=== PATIENT | male | born 1995 | race Caucasian/White ===

== ENCOUNTER 2019-01-16 08:08 | Outpatient (CLI) | payer OTHER ==
--- NOTE | 2019-01-16 17:45 | MRI Report ---
Reason: PAIN IN UNSPECIFIED ELBOW Procedure Date: 01/16/2019 Accession Number: [id number] / [id number] Procedure: MRI - Elbow RT W/O CPT Code: FULL RESULT: EXAM: RIGHT ELBOW MRI WITHOUT CONTRAST. EXAM DATE: 01/16/2019 09:01 AM. CLINICAL HISTORY: Pain in unspecified elbow. COMPARISON: None. TECHNIQUE: Multiplanar, multisequence T1-weighted and fluid-sensitive sequences of the elbow without contrast. Other: None. FINDINGS: Bones: Focal area of marrow edema without fracture line seen in the anterior lateral aspect of the capitellum. 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 Marginal arthrosis at the lateral aspect of the capitellum also noted. 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 Ligaments: The ulnar collateral, lateral ulnar collateral, radial collateral, and annular ligaments are intact. Tendons: Common extensor tendon shows some mild thickening and increased T2 signal. Common flexor tendon is normal. The distal biceps, brachialis, and triceps tendons are unremarkable. Musculature: No edema or fatty atrophy. Other: The cubital tunnel and ulnar nerve are unremarkable. No effusion. The subcutaneous tissues are unremarkable. IMPRESSION: 1. There is a focal area of marrow edema without fracture line in the anterolateral aspect of the capitellum. 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 Marginal osteophytosis also seen at the capitellum. 2. There is mild tendinopathy at the common extensor tendon. Flexor tendon is normal. Other tendon attachments also appear unremarkable. RADIA
== END 2019-01-16 08:09 | disposition home or self-care (01) ==
LOC: DI 08:08
PROVIDERS: ATTEND Family Medicine
DX: M94.221 Chondromalacia, right elbow (principal); M67.921 Unspecified disorder of synovium and tendon, right upper arm

== ENCOUNTER 2019-04-07 15:07 | Emergency (ER) | payer OTHER ==
--- NOTE | 2019-04-07 16:32 | ED Physician Documentation ---
History of Present Illness - Stated complaint Stated Complaint: Not Feeling Well - Chief complaint Chief Complaint: General - History obtained from History obtained from: Patient - History of Present Illness Timing: Prior to arrival - Additonal information Additional information: Patient is a previously healthy 24-year-old male presenting the ED with general unwell feeling. 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 Patient denies other specific complaints of pain including headache, chest pain, abdominal pain. Patient also denies productive cough, fever, vomiting, urinary changes, or stool changes. Patient is tolerated oral intake well and has not had any episodes of syncope or near syncope. No other improving or worsening factors noted. Review of Systems Constitutional: denies: Fever Eyes: denies: Loss of vision Cardiac: denies: Chest pain / pressure Respiratory: reports: Dyspnea. denies: Cough GI: denies: Abdominal Pain, Nausea, Vomiting, Diarrhea : denies: Dysuria Neurologic: reports: Numbness PD PAST MEDICAL HISTORY - Past Medical History Past Medical History: No - Past Surgical History Past Surgical History: No - Present Medications Home Medications: Ambulatory Orders Medication Instructions Recorded Confirmed No Known Home Medications 04/07/19 04/07/19 - Allergies Allergies/Adverse Reactions: Allergies Allergy/AdvReac Type Severity Reaction Status Date / Time No Known Drug Allergies Allergy Verified 04/07/19 15:15 - Social History Does the pt smoke?: Yes Smoking Status: Current every day smoker PD ED PE NORMAL - Vitals Vital signs reviewed: Yes - General General: Alert and oriented X 3, No acute distress, Well developed/nourished - HEENT HEENT: Atraumatic, PERRL, EOMI, Moist mucous membranes, Pharynx benign, Dentition benign - Neck Neck: Supple, no meningeal sign - Cardiac Cardiac: RRR, No murmur - Respiratory Respiratory: No respiratory distress, Clear bilaterally - Abdomen Abdomen: Soft, Non tender, Non distended - Derm Derm: Normal color, Warm and dry, No rash - Extremities Extremities: No deformity, No tenderness to palpate - Neuro Neuro: Alert and oriented X 3, No motor deficit, No sensory deficit - Psych Psych: Normal mood, Normal affect Results - Vitals Vitals: Vital Signs - 24 hr 04/07/19 15:13 Temperature 36.6 C Heart Rate 77 Respiratory 22 Rate Blood Pressure 117/76 O2 Saturation 100 Oxygen O2 Source Room air PD MEDICAL DECISION MAKING - ED course Complexity details: considered differential, d/w patient ED course: Patient presenting with general unwell feeling and description of diffuse paresthesias that haveLargely resolved. Patient is denying any specific complaints would raise high suspicion for intracranial injury including stroke or mass, PE or pneumonia, cardiac pathology including ME or ACS, intra-abdominal pathology, UTI or other infection. Physical exam is extremely benign. Feel that patient is likely experiencing lack of sleep, dehydration, and other general unwell feelings, but does not require imaging or invasive testing at this time. Patient agrees. Discussed hydration and diet recommendations, rest, and follow-up as well as return precautions. Patient voiced understanding and is comfortable with discharge plan. Departure - Departure Disposition: 01 Home, Self Care Clinical Impression: Paresthesias Condition: Good Follow-Up: Sophia Day MD [Primary Care Provider] - Within 3 Days Comments: Recommend hydration with Powerade/Gatorade and healthy, bland diet advancing as tolerated. Recommend rest and follow-up with primary care physician in next 2 to 3 days. Return to ED sooner if experience worsening symptoms or have other concerns.
[2019-04-07 17:03] VITALS: BP 111/75
== END 2019-04-07 17:02 | disposition home or self-care (01) ==
LOC: ED 15:07
DX: R20.2 Paresthesia of skin (principal); F17.200 Nicotine dependence, unspecified, uncomplicated
CPT/HCPCS: 99282; 99284

== ENCOUNTER 2021-05-10 07:38 | Outpatient (CLI) | payer OTHER ==
--- NOTE | 2021-05-10 17:04 | MRI Report ---
PROCEDURE: INDICATIONS: LEFT KNEE INSTABILITY TECHNIQUE: Noncontrast sagittal PD fast spin echo and T2 fast spin echo with fat saturation, sagittal 3-D gradie nt sequence with fat saturation; coronal T1 spin echo and PD fast spin echo with fat saturation, and axial PD fast spin echo with fat saturation through the knee. COMPARISON: None. FINDINGS: Menisci: Medial meniscus: Intact. Lateral meniscus: Intact. Cruciate ligaments: Anterior cruciate ligament: Intact. Posterior cruciate ligament: Intact. Medial structures: The medial collateral ligament appears intact. The semimembranosus tendon appears intact. Visualized portions of the pes anserinus tendons appear normal. No abnormal bursal fluid. Lateral structures: Lateral collateral ligament appears grossly intact. Biceps femoris tendon appears intact. Iliotibial band within normal limits. Popliteus tendon within normal limits. Anterior structures: Patellar tendon appears intact Quadriceps tendon appears intact. Medial and lateral patellofemoral ligaments appear grossly intact. Patellar alignment is normal. Hoffa's fat pad unremarkable. Bones and cartilage: Bones: Focal marrow edema involving the medial aspect of the patella. Medial compartment: Cartilage intact. Lateral compartment: Cartilage intact. Patellofemoral compartment: Fissuring of the cartilage overlying the lateral patellar facet. Femoral trochlear cartilage appears intact. Joint space: No joint effusion. No Steve?s cyst. IMPRESSION: Prominent focal marrow edema involving the medial aspect of the patella, suspicious for marrow contus ion. Please correlate to point tenderness. Elsewhere, no internal derangement Reviewed by: Francisco Martinez MD on 05/10/2021 5:03 PM PDT Approved by: Francisco Martinez MD on 05/10/2021 5:03 PM PDT Station ID: [id number]
== END 2021-05-10 07:39 | disposition home or self-care (01) ==
LOC: DI 07:38
PROVIDERS: ATTEND Student in an Organized Health Care Education/Training Program
DX: R60.0 Localized edema (principal); M25.362 Other instability, left knee

== ENCOUNTER 2021-10-06 11:29 | Emergency (ER) | payer OTHER ==
[2021-10-06 11:44] VITALS: BP 123/74
[2021-10-06] MEDS ORDERED: ONDANSETRON ODT 4 MG TABLET TL STA (12:00)
--- NOTE | 2021-10-06 12:04 | ED Physician Documentation ---
History of Present Illness - Stated complaint Stated Complaint: VOMITING, COUGHING UP BLOOD - Chief complaint Chief Complaint: General - Additonal information Additional information: 26-year-old male presents emergency department for evaluation of coffee-ground emesis as well as mild hemoptysis. He reports that he woke up this morning felt okay but when his work began to get nauseated. He went to the bathroom and vomited a fair amount of coffee ground vomitus. Shortly thereafter he coughed and noted a little bit of blood in his sputum. He denies any recent fevers. He has no abdominal pain but does endorse some nausea. He has no melena or hematochezia. No history of similar in the past. Very rare alcohol use. He typically uses Aleve or ibuprofen once to twice a week to manage headaches. He does vape. No history of similar in the past. Takes no routinely prescribed medications. Review of Systems Constitutional: reports: Reviewed and negative Ears: reports: Reviewed and negative Nose: reports: Reviewed and negative Throat: reports: Sore throat Cardiac: reports: Reviewed and negative Respiratory: reports: Cough, Hemoptysis, Reviewed and negative GI: reports: Nausea, Vomiting. denies: Abdominal Pain, Constipation, Diarrhea : reports: Reviewed and negative Skin: reports: Reviewed and negative Musculoskeletal: reports: Reviewed and negative Neurologic: reports: Reviewed and negative PD PAST MEDICAL HISTORY - Past Surgical History Past Surgical History: No - Present Medications Home Medications: Ambulatory Orders Medication Instructions Recorded Confirmed Omeprazole 40 mg PO DAILY #30 cap 10/06/21 Ondansetron Odt [Zofran] 4 mg TL Q6H PRN #10 tablet 10/06/21 - Allergies Allergies/Adverse Reactions: Allergies Allergy/AdvReac Type Severity Reaction Status Date / Time No Known Drug Allergies Allergy Verified 10/06/21 11:44 - Social History Does the pt smoke?: Yes Smoking Status: Current every day smoker PD ED PE NORMAL - General General: Alert and oriented X 3, No acute distress, Well developed/nourished - HEENT HEENT: Atraumatic, Ears normal, Moist mucous membranes. No: Pharynx benign (Small number of fluid-filled vesicle seen in the posterior oropharynx. Uvula is midline. No soft palate asymmetry or swelling. Normal phonation. Normal swallow.) - Neck Neck: Supple, no meningeal sign, No adenopathy, Thyroid normal - Cardiac Cardiac: RRR, No murmur - Respiratory Respiratory: No respiratory distress, Clear bilaterally - Abdomen Abdomen: Normal bowel sounds, Soft, Non tender - Male Male : Deferred, Pt declined - Rectal Rectal: Deferred - Back Back: No CVA TTP, No spinal TTP - Derm Derm: Normal color, Warm and dry, No rash - Extremities Extremities: No deformity, No tenderness to palpate, Normal ROM s pain - Neuro Neuro: Alert and oriented X 3, sole layer 2-12 intact Eye Opening: Spontaneous Motor: Obeys Commands Verbal: Oriented GCS Score: 15 Results - Vitals Vitals: Vital Signs - 24 hr 10/06/21 11:41 Temperature 36.8 C Heart Rate 78 Respiratory 15 Rate Blood Pressure 123/74 O2 Saturation 99 Oxygen O2 Source Room air - Labs Labs: Laboratory Tests 10/06/21 10/06/21 10/06/21 12:07 12:07 12:07 WBC 8.0 RBC 5.36 Hgb 16.9 Hct 48.6 MCV 90.7 MCH 31.5 H MCHC 34.8 RDW 12.4 Plt Count 233 MPV 10.2 Neut # (Auto) 5.6 Lymph # (Auto) 1.8 Kane # (Auto) 0.6 Eos # (Auto) 0.0 Baso # (Auto) 0.0 Absolute Nucleated RBC 0.00 Nucleated RBC % 0.0 PT 12.7 H INR 1.1 Sodium 139 Potassium 3.8 Chloride 100 L Carbon Dioxide 28 Anion Gap 11.0 BUN 12 Creatinine 0.9 Estimated GFR (MDRD) 103 Glucose 106 H Calcium 9.4 Total Bilirubin 1.4 H AST 34 ALT 39 Alkaline Phosphatase 71 Total Protein 8.1 Albumin 4.9 Globulin 3.2 Albumin/Globulin Ratio 1.5 Lipase 29 Departure - Departure Disposition: 01 Home, Self Care Clinical Impression: Hematemesis of unknown cause Nausea and vomiting Qualifiers: Vomiting type: unspecified Qualified Code(s): R11.2 - Nausea with vomiting, unspecified Condition: Stable Record reviewed to determine appropriate education?: Yes Instructions: ED PUD Vs Gastritis Prescriptions: Omeprazole 40 mg PO DAILY #30 cap Ondansetron Odt [Zofran] 4 mg TL Q6H PRN #10 tablet PRN Reason: Nausea / Vomiting Comments: Rui you were seen in the emergency department today for reportedly vomiting coffee-ground emesis. Your screening labs did not show any worrisome findings. However vomiting of coffee-ground or suspicion of bloody vomit can be a sign of gastritis, peptic ulcer disease or NSAID medication overuse. I have prescribed a small amount of Zofran to the [facility] in [place]. I recommend for the next 24 hours you sip clear liquids and use the Zofran to help with nausea. I recommend that you avoid caffeine, NSAID use, any tobacco or nicotine products and alcohol. If you find that this is not improving your symptoms you should see [facility] as you should then be referred for an endoscopy to evaluate for stomach ulcer formation. In the short-term I would like you to take the omeprazole once daily. Reasons to return to the emergency department would be fevers, uncontrolled vomiting, black or bloody stools or any chest pain, shortness of air or fainting episodes.
[2021-10-06 12:15] LABS: BASOPHILS % (AUTO) 0.4 %; EOSINOPHILS % (AUTO) 0.4 %; HCT - HEMATOCRIT 48.6 % (42.0-52.0); HGB - HEMOGLOBIN 16.9 g/dL (14.0-18.0); LYMPHOCYTES # (AUTO) 1.8 10^3/uL (1.5-3.5); LYMPHOCYTES % (AUTO) 22.5 %; MEAN CORPUSCULAR HEMOGLOBIN 31.5 pg (27.0-31.0); MEAN CORPUSCULAR HGB CONC 34.8 g/dL (32.0-36.0); MEAN CORPUSCULAR VOLUME 90.7 fL (80.0-94.0); MEAN PLATELET VOLUME 10.2 fL (7.4-11.4); MONOCYTES # (AUTO) 0.6 10^3/uL (0.0-1.0); MONOCYTES % (AUTO) 7.1 %; NEUTROPHILS # (AUTO) 5.6 10^3/uL (1.5-6.6); NEUTROPHILS % (AUTO) 69.4 %; PLT - PLATELET COUNT 233 10^3/uL (130-450); RED BLOOD COUNT 5.36 10^6/uL (4.70-6.10); RED CELL DISTRIBUTION WIDTH 12.4 % (12.0-15.0)
[2021-10-06 12:30] LABS: INR 1.1 (0.8-1.2); PT - PROTHROMBIN TIME 12.7 secs (9.9-12.6)
[2021-10-06 12:32] LABS: ALBUMIN 4.9 g/dL (3.2-5.5); ALBUMIN/GLOBULIN RATIO 1.5 (1.0-2.2); BILIRUBIN,TOTAL 1.4 mg/dL (0.2-1.0); CALCIUM 9.4 mg/dL (8.5-10.3); CREATININE 0.9 mg/dL (0.6-1.2); POTASSIUM 3.8 mmol/L (3.5-5.0); TOTAL PROTEIN 8.1 g/dL (6.7-8.2)
== END 2021-10-06 13:01 | disposition home or self-care (01) ==
LOC: ED 11:29
DX: K92.0 Hematemesis (principal); R11.2 Nausea with vomiting, unspecified; F17.290 Nicotine dependence, other tobacco product, uncomplicated
CPT/HCPCS: 36415; 80053; 83690; 85025; 85610; 99283; Q0162

== ENCOUNTER 2022-06-15 10:01 | Outpatient (CLI) | payer OTHER | END 2022-06-15 10:02 | disposition critical access hospital (66) | LOC: EMS 10:01 | DX: R06.02 Shortness of breath (principal); R07.89 Other chest pain | CPT/HCPCS: A0425; A0429 ==

== ENCOUNTER 2022-06-15 10:30 | Emergency (ER) | payer OTHER ==
--- NOTE | 2022-06-15 11:10 | ED Physician Documentation ---
PD HPI CHEST PAIN - Stated complaint Stated Complaint: WEAKNESS - Chief complaint Chief Complaint: Cardiac - History obtained from History obtained from: Patient, EMS - Additional information Additional information: The patient is brought to the emergency department by EMS after complaining of some chest heaviness while at [facility] and being found to have an "irregular heartbeat". The patient states he has not been able to sleep well for several nights, due to a recurring nightmare of a avelar figure running out him. Patient states he wakes up screaming every time. He states that he has had these nightmares before but they usually go away after couple of nights. However, he states this is lasted longer. He denies any depression or anxiety that he can identify. He states that he has just felt very tired after not sleeping well and it gives him a sense of heaviness in his chest. He states he also occasionally has some palpitations. The patient states he was at work and just was not feeling well and went to [facility] hoping to get a prescription for something to help him sleep, but then they sent him here. The patient denies any recent illnesses. No fevers, chills, nausea, vomiting, abdominal pain, chest pain, or shortness of breath. He states that he is not a smoker and has no history of diabetes or hypertension. No family history of anyone with an CT in their 20s or 30s. Patient states he is otherwise fairly healthy. No recent alcohol intake. Review of Systems Ten Systems: 10 systems reviewed and negative Constitutional: reports: Reviewed and negative Eyes: reports: Reviewed and negative Ears: reports: Reviewed and negative Nose: reports: Reviewed and negative Throat: reports: Reviewed and negative Cardiac: reports: Chest pain / pressure (Pressure/Heaviness), Palpitations Respiratory: reports: Reviewed and negative GI: reports: Reviewed and negative : reports: Reviewed and negative Skin: reports: Reviewed and negative Musculoskeletal: reports: Reviewed and negative Neurologic: reports: Reviewed and negative Psychiatric: reports: Insomnia Endocrine: reports: Reviewed and negative Immunocompromised: reports: Reviewed and negative PD PAST MEDICAL HISTORY - Past Medical History Cardiovascular: None Respiratory: None Neuro: None Endocrine/Autoimmune: None GI: None : None HEENT: None Psych: None Musculoskeletal: None Derm: None - Past Surgical History Past Surgical History: No - Present Medications Home Medications: Ambulatory Orders Medication Instructions Recorded Confirmed Omeprazole 40 mg PO DAILY #30 cap 10/06/21 Ondansetron Odt [Zofran] 4 mg TL Q6H PRN #10 tablet 10/06/21 Zolpidem Tartrate [Ambien] 10 mg PO HS PRN #15 tablet 06/15/22 - Allergies Allergies/Adverse Reactions: Allergies Allergy/AdvReac Type Severity Reaction Status Date / Time No Known Drug Allergies Allergy Verified 10/06/21 11:44 - Social History Does the pt smoke?: Yes Smoking Status: Current every day smoker Does the pt drink ETOH?: No Does the pt have substance abuse?: No - Immunizations Immunizations are current?: Yes - POLST Patient has POLST: No PD ED PE NORMAL - Vitals Vital signs reviewed: Yes - General General: Alert and oriented X 3, No acute distress, Well developed/nourished - HEENT HEENT: Atraumatic, PERRL, EOMI, Moist mucous membranes - Neck Neck: Supple, no meningeal sign - Cardiac Cardiac: RRR, No murmur, Strong equal pulses - Respiratory Respiratory: No respiratory distress, Clear bilaterally - Abdomen Abdomen: Soft, Non tender, Non distended - Derm Derm: Normal color, Warm and dry, No rash - Extremities Extremities: No deformity, No edema - Neuro Neuro: Alert and oriented X 3, subsystems engineer 2-12 intact, No motor deficit, No sensory deficit, Normal speech - Psych Psych: Normal mood, Normal affect Results - Vitals Vitals: Vital Signs - 24 hr 06/15/22 06/15/22 10:33 11:29 Temperature 36.2 C L Heart Rate 52 L 62 Respiratory 20 17 Rate Blood Pressure 129/85 H 120/80 O2 Saturation 98 99 Oxygen O2 Source Room air - EKG (time done) 1046 Rate: Rate (enter#) (65) Rhythm: NSR (With sinus dysrhythmia) [place]: Normal Intervals: Normal PA QRS: Normal Ischemia: Normal ST segments Compare to prior EKG: Old EKG unavailable Computer interpretation: Agree with computer PD MEDICAL DECISION MAKING - ED course Complexity details: reviewed results, re-evaluated patient, considered differential, d/w patient ED course: The patient was well-appearing in the emergency department and EKG showed sinus dysrhythmia. The patient is extremely low risk for coronary artery disease and was otherwise very healthy. I suspected his sense of chest heaviness was just due to being very tired after not sleeping well for a number of nights. I did not find any evidence of an emergent condition. The patient's physical exam was normal and his vital signs looked good. I discussed with him that sinus dysrhythmia is a benign condition and very common. We have discussed the usual indications for return, as well as follow-up. I have sent in a prescription for Ambien for the patient. Departure - Departure Disposition: Home, Self Care Clinical Impression: Atypical chest pain, Sinus arrhythmia Insomnia Qualifiers: Insomnia type: unspecified Qualified Code(s): G47.00 - Insomnia, unspecified Condition: Stable Instructions: ED Chest Pain NonCardiac, ED Insomnia Prescriptions: Zolpidem Tartrate [Ambien] 10 mg PO HS PRN #15 tablet PRN Reason: Insomnia Comments: Your EKG shows sinus dysrhythmia, a benign condition in which the normal nerves that tell your heart when to be are slightly irregular. This is considered within the spectrum of normal heart rhythms. You are very low risk for heart attack or any other serious cause of chest discomfort. You most likely have been feeling fatigued and somewhat heavy chested because of your lack of sleep for the last several days. A prescription for your sleeping medication has been electronically [place] to [place] [facility] [place] You may pick this up on your way home. Please [facility]-up with [facility] for any further concerns regarding your insomnia. Discharge Date/Time: 06/15/22 11:34
[2022-06-15 11:29] VITALS: BP 120/80
== END 2022-06-15 11:34 | disposition home or self-care (01) ==
LOC: EDUNIT# → ED 10:30
DX: R07.89 Other chest pain (principal); I49.8 Other specified cardiac arrhythmias; G47.00 Insomnia, unspecified
CPT/HCPCS: 36415; 93005; 99283; 99284

== ENCOUNTER 2022-06-22 12:11 | Emergency (ER) | payer OTHER ==
[2022-06-22 12:39] LABS: BASOPHILS % (AUTO) 0.6 %; EOSINOPHILS # (AUTO) 0.1 10^3/uL (0.0-0.7); EOSINOPHILS % (AUTO) 0.7 %; HCT - HEMATOCRIT 49.7 % (42.0-52.0); HGB - HEMOGLOBIN 16.7 g/dL (14.0-18.0); LYMPHOCYTES # (AUTO) 1.5 10^3/uL (1.5-3.5); LYMPHOCYTES % (AUTO) 21.8 %; MEAN CORPUSCULAR HGB CONC 33.6 g/dL (32.0-36.0); MEAN CORPUSCULAR VOLUME 92.2 fL (80.0-94.0); MEAN PLATELET VOLUME 10.3 fL (7.4-11.4); MONOCYTES # (AUTO) 0.8 10^3/uL (0.0-1.0); MONOCYTES % (AUTO) 11.6 %; NEUTROPHILS # (AUTO) 4.4 10^3/uL (1.5-6.6); NEUTROPHILS % (AUTO) 65.2 %; PLT - PLATELET COUNT 208 10^3/uL (130-450); RED BLOOD COUNT 5.39 10^6/uL (4.70-6.10); RED CELL DISTRIBUTION WIDTH 12.4 % (12.0-15.0); WHITE BLOOD COUNT 6.7 x10^3/uL (4.8-10.8)
[2022-06-22 12:55] LABS: ALBUMIN 5.1 g/dL (3.2-5.5); CALCIUM 9.6 mg/dL (8.5-10.3); CREATININE 0.9 mg/dL (0.6-1.2); TOTAL PROTEIN 7.7 g/dL (6.7-8.2)
[2022-06-22 12:57] LABS: POTASSIUM 4.2 mmol/L (3.5-5.0)
[2022-06-22 13:16] LABS: BILIRUBIN,URINE NEGATIVE (NEGATIVE); GLUCOSE, URINE (UA) NEGATIVE (NEGATIVE); KETONES,URINE (UA) NEGATIVE (NEGATIVE); LEUKOCYTE ESTERASE, URINE NEGATIVE (NEGATIVE); NITRITE,URINE NEGATIVE (NEGATIVE); OCCULT BLOOD,URINE NEGATIVE (NEGATIVE); PH,URINE 7.5 PH (5.0-7.5); PROTEIN,URINE NEGATIVE (NEGATIVE); UROBILINOGEN,URINE 0.2 (NORMAL) E.U./dL (NORMAL)
[2022-06-22 13:18] LABS: CLARITY,URINE CLEAR (CLEAR)
--- NOTE | 2022-06-22 13:44 | ED Physician Documentation ---
History of Present Illness - Stated complaint Stated Complaint: ABD PX - Chief complaint Chief Complaint: Abd Pain - History obtained from History obtained from: Patient - History of Present Illness Timing: How many days ago (2) Pain level max: 6 Pain level now: 5 - Additonal information Additional information: 27-year-old male presents to the emergency department with left lower quadrant abdominal pain. This started about 2 days ago and is gradually worsened. He was seen at the walk-in clinic today and sent here for evaluation for possible appendicitis versus diverticulitis. No fevers. No chills. Mild nausea but no vomiting. No dysuria. No diarrhea or constipation. Worse with palpation and movement, better with rest Review of Systems Constitutional: denies: Fever, Chills Throat: denies: Sore throat Cardiac: denies: Chest pain / pressure Respiratory: denies: Cough GI: reports: Nausea. denies: Constipation, Diarrhea, Bloody / black stool : denies: Dysuria, Frequency, Hesitancy Skin: denies: Rash Neurologic: denies: Headache PD PAST MEDICAL HISTORY - Past Medical History Past Medical History: Yes Cardiovascular: None Respiratory: None Neuro: None Endocrine/Autoimmune: None GI: None : None HEENT: None Psych: None Musculoskeletal: None Derm: None - Past Surgical History Past Surgical History: No - Present Medications Home Medications: Ambulatory Orders Medication Instructions Recorded Confirmed Omeprazole 40 mg PO DAILY #30 cap 10/06/21 Ondansetron Odt [Zofran] 4 mg TL Q6H PRN #10 tablet 10/06/21 Zolpidem Tartrate [Ambien] 10 mg PO HS PRN #15 tablet 06/15/22 - Allergies Allergies/Adverse Reactions: Allergies Allergy/AdvReac Type Severity Reaction Status Date / Time No Known Drug Allergies Allergy Verified 06/22/22 12:20 - Social History Does the pt smoke?: Yes Smoking Status: Current every day smoker Does the pt drink ETOH?: No Does the pt have substance abuse?: No - Immunizations Immunizations are current?: Yes - POLST Patient has POLST: No PD ED PE NORMAL - Vitals Vital signs reviewed: Yes - General General: Alert and oriented X 3, No acute distress - HEENT HEENT: Moist mucous membranes - Neck Neck: Supple, no meningeal sign - Cardiac Cardiac: RRR - Respiratory Respiratory: No respiratory distress, Clear bilaterally - Abdomen Abdomen: Soft, Non tender, Other (Mild tenderness to palpation left lower quadrant. No peritoneal signs.) - Back Back: No CVA TTP - Derm Derm: Warm and dry - Neuro Neuro: Alert and oriented X 3 - Psych Psych: Normal mood, Normal affect Results - Vitals Vitals: Vital Signs - 24 hr 06/22/22 06/22/22 06/22/22 12:17 12:20 14:20 Temperature 36.7 C 36.7 C Heart Rate 61 61 60 Respiratory 12 12 14 Rate Blood Pressure 132/82 H 132/82 H 128/80 O2 Saturation 100 100 100 06/22/22 16:45 Temperature Heart Rate 64 Respiratory 18 Rate Blood Pressure 122/70 O2 Saturation 100 Oxygen O2 Source Room air - Labs Labs: Laboratory Tests 06/22/22 06/22/22 06/22/22 12:34 12:34 12:53 WBC 6.7 RBC 5.39 Hgb 16.7 Hct 49.7 MCV 92.2 MCH 31.0 MCHC 33.6 RDW 12.4 Plt Count 208 MPV 10.3 Neut # (Auto) 4.4 Lymph # (Auto) 1.5 [place] # (Auto) 0.8 Eos # (Auto) 0.1 Baso # (Auto) 0.0 Absolute Nucleated RBC 0.00 Nucleated RBC % 0.0 Sodium 138 Potassium 4.2 Chloride 103 Carbon Dioxide 27 Anion Gap 8.0 BUN 11 Creatinine 0.9 Estimated GFR (MDRD) 102 Glucose 104 H Calcium 9.6 Total Bilirubin 1.0 AST 26 ALT 27 Alkaline Phosphatase 72 Total Protein 7.7 Albumin 5.1 Globulin 2.6 Albumin/Globulin Ratio 2.0 Lipase 27 Urine Color YELLOW Urine Clarity CLEAR Urine pH 7.5 Ur Specific [place] 1.015 Urine Protein NEGATIVE Urine Glucose (UA) NEGATIVE Urine Ketones NEGATIVE Urine Occult Blood NEGATIVE Urine Nitrite NEGATIVE Urine Bilirubin NEGATIVE Urine Urobilinogen 0.2 (NORMAL) Ur Leukocyte Esterase NEGATIVE Ur Microscopic Review NOT INDICATED Urine Culture Comments NOT INDICATED - Rads (name of study) CT abd.pelvis Radiology: Final report received, EMP read contemporaneously, See rad report PD MEDICAL DECISION MAKING - ED course Complexity details: reviewed results, re-evaluated patient, considered differential, d/w patient ED course: 27-year-old male with epiploic appendagitis. Patient is well-appearing, nontoxic. Afebrile. No significant lab abnormalities. Declines any pain medication here or for home. He will follow-up with his doctor for further care. Patient counseled regarding signs and symptoms for which I believe and urgent re-evaluation would be necessary. Patient with good understanding of and agreement to plan and is comfortable going home at this time This document was made in part using voice recognition software. While efforts are made to proofread this document, sound alike and grammatical errors may occur. IMPRESSION: 1. Epiploic appendagitis involving the descending colon. 2. Normal appendix. 3. Horseshoe kidney. Departure - Departure Disposition: Home, Self Care Clinical Impression: Epiploic appendagitis Condition: Good Instructions: ED Abdominal Pain Unkn Cause Male Follow-Up: your,doctor as needed [Other] Comments: You have epiploic appendagitis on your CT scan. This is a self-limiting issue. This will resolve on its own but may hurt for several days to weeks. You can use Motrin or Tylenol as needed for pain. Return if you worsen. Incidentally on CT you do have a horseshoe kidney as well, this usually does not cause any issue. IMPRESSION: 1. Epiploic appendagitis involving the descending colon. 2. Normal appendix. 3. Horseshoe kidney. Discharge Date/Time: 06/22/22 16:46
[2022-06-22] MEDS ORDERED: iohexoL-300 100 ML VIAL ONE (13:53)
[2022-06-22] MEDS ORDERED: iohexoL-300 100 ML VIAL IVP ONE (15:43)
--- NOTE | 2022-06-22 16:01 | CT Report ---
PROCEDURE: ABDOMEN/PELVIS W INDICATIONS: LLQ abd pain CONTRAST: 100ml omni 300 TECHNIQUE: After the administration of IV contrast, 5 mm thick sections acquired from the diaphragms to the symp hysis. 5 mm thick coronal and sagittal reformats were acquired. For radiation dose reduction, the f ollowing was used: automated exposure control, adjustment of mA and/or kV according to patient size. COMPARISON: None. FINDINGS: Image quality: Excellent. ABDOMEN: Lung bases: Lung bases are clear. Heart size is normal. Solid organs: Liver and spleen are normal in size and enhancement. Gallbladder is within normal david its Biliary system is non dilated. Pancreas enhances normally. No adrenal nodules. Horseshoe kidne y is present. No hydronephrosis. Peritoneum and bowel: Bowel loops demonstrate normal wall thickness and caliber. There is a small f ocus of fat density with surrounding fat stranding within the left lower quadrant at the mesenteric s janiya of the descending colon. No pericolonic abscess. No free fluid or air. Normal appendix. Nodes and vessels: No retroperitoneal or mesenteric adenopathy by size criteria. Aorta and inferior vena cava are normal in size. Miscellaneous: No ventral hernias. PELVIS: Genitourinary: Bladder wall thickness is normal. Miscellaneous: No inguinal hernias or adenopathy. Bones: No suspicious bony lesions. No vertebral body compression fractures. IMPRESSION: 1. Epiploic appendagitis involving the descending colon. 2. Normal appendix. 3. Horseshoe kidney. Reviewed by: Antonio Luna MD on 06/22/2022 3:59 PM PDT Approved by: Antonio Luna MD on 06/22/2022 3:59 PM PDT Station ID: [id number]
[2022-06-22 16:45] VITALS: BP 122/70
== END 2022-06-22 16:46 | disposition home or self-care (01) ==
LOC: ED 12:11
DX: K63.89 Other specified diseases of intestine (principal); F17.200 Nicotine dependence, unspecified, uncomplicated
CPT/HCPCS: 36415; 74177; 80053; 81003; 83690; 85025; 99282; 99284; Q9967; 81001; 87086